=== PATIENT | male | born 1965 | race Caucasian/White ===

== ENCOUNTER 2020-06-06 15:16 | Emergency (ER) | payer OTHER ==
[2020-06-06] MEDS ORDERED: SODIUM CHLORIDE 0.9% 500 ML 500 ML IV STA (15:27)
--- NOTE | 2020-06-06 15:31 | ED ---
Seizure HPI - General Chief Complaint: Seizure Stated Complaint: Seizure Time Seen by Provider: 06/06/20 15:18 - History of Present Illness Initial Comments: patient is a 55-year-old male presenting to the emergency department via EMS after having a seizure today. Patient [place] the [place] when he felt an aura, placed that down on this beach and then proceeded to have a partial seizure according to witnesses. Patient states he does have a history of seizures in the past, they are infrequent, he does not take medicines for it. He states his last seizure was about 8 months ago. He denies any rece nt falls or trauma. He states they had just ate lunch. Patient denies any new medications. He states he only takes vitamins, no other meds. He denies any alcohol or drug use. He has seen a neurologist in the past. He states he has a mild headache and is slightly nauseous, no other complaints. He denies any blurry vision, dizziness, abdominal pain, chest pain or shortness of breath. He states he's been feeling fine all day prior to this event. He has no further complaints at this time. Upon arrival to the ER, his vitals are stable. - Related Data Home Medications Medication Instructions Recorded Confirmed buPROPion HCL [Wellbutrin XL] 300 PO 06/06/20 Allergies Allergy/AdvReac Type Severity Reaction Status Date / Time No Known Allergies Allergy Verified 06/06/20 15:56 Review of Systems ROS Statement: Those systems with pertinent positive or pertinent negative responses have been documented in the HPI. ROS Other: All systems not noted in ROS Statement are negative. General Exam - General Exam Comments Initial Comments: GENERAL: Patient is well-developed and well-nourished. Patient is nontoxic and in no acute distress. HEAD: Atraumatic, normocephalic. EYES: Pupils equal round and reactive to light, extraocular movements intact, sclera anicteric, conjunctiva are normal. Eyelids were unremarkable. ENT: TMs normal, nares patent, oropharynx clear without exudates. Moist mucous membranes. NECK: Normal range of motion, supple without lymphadenopathy or JVD. LUNGS: Unlabored respirations. Breath sounds clear to auscultation bilaterally and equal. No wheezes rales or rhonchi. HEART: Regular rate and rhythm without murmurs, rubs or gallops. ABDOMEN: Soft, nontender, normoactive bowel sounds. No guarding, no rebound. No masses appreciated. : Deferred MUSCULOSKELETAL: Normal extremities with adequate strength and normal range of motion, no pitting or edema. No clubbing or cyanosis. NEUROLOGICAL: Patient is alert and oriented x 3. Motor and sensory are also intact. Cranial nerves II through XII grossly intact. Symmetrical smile. Normal speech, normal gait. PSYCH: Normal mood, normal affect. SKIN: Warm, Dry, normal turgor, no rashes or lesions noted. Course Vital Signs 06/06/20 15:20 Temperature 97.9 F Pulse Rate 90 Respiratory 18 Rate Blood Pressure 132/87 O2 Sat by Pulse 96 Oximetry Medical Decision Making - Medical Decision Making patient is a 55-year-old male here after [place] a seizure on the beach. He does have a history of seizures, last was 8 months ago. He does see a neurologist locally, he has had an extensive workup in the past. He is not currently on medication. Patient's vital signs are stable. He did complain of a very mild headache. Computed tomography scan shows no abnormalities, lab work shows no abnormalities. He has been stable in the ER. Patient's is here with him now. He is stable for discharge. He'll follow up with his neurologist. Patient and patient's is in agreement with this plan of care. Return parameters were discussed with them and they both verbalized understanding. Case discussed with Dr. Levin. - Lab Data Result diagrams: 06/06/20 15:49 06/06/20 15:49 Lab Results 06/06/20 06/06/20 Range/Units 15:49 15:49 WBC 9.3 (3.8-10.6) k/uL RBC 4.80 (4.30-5.90) m/uL Hgb 14.2 (13.0-17.5) gm/dL Hct 42.9 (39.0-53.0) % MCV 89.5 (80.0-100.0) fL MCH 29.5 (25.0-35.0) pg MCHC 33.0 (31.0-37.0) g/dL RDW 13.8 (11.5-15.5) % Plt Count 312 (150-450) k/uL Neutrophils % 77 % Lymphocytes % 12 % Monocytes % 6 % Eosinophils % 4 % Basophils % 0 % Neutrophils # 7.1 (1.3-7.7) k/uL Lymphocytes # 1.1 (1.0-4.8) k/uL Monocytes # 0.6 (0-1.0) k/uL Eosinophils # 0.3 (0-0.7) k/uL Basophils # 0.0 (0-0.2) k/uL Sodium 138 (137-145) mmol/L Potassium 4.1 (3.5-5.1) mmol/L Chloride 108 H (98-107) mmol/L Carbon Dioxide 21 L (22-30) mmol/L Anion Gap 9 mmol/L BUN 15 (9-20) mg/dL Creatinine 0.85 (0.66-1.25) mg/dL Est GFR (CKD-EPI)AfAm >90 (>60 ml/min/1.73 sqM) Est GFR (CKD-EPI)NonAf >90 (>60 ml/min/1.73 sqM) Glucose 104 H (74-99) mg/dL Calcium 9.0 (8.4-10.2) mg/dL Total Bilirubin 0.3 (0.2-1.3) mg/dL AST 30 (17-59) U/L ALT 26 (4-49) U/L Alkaline Phosphatase 84 (38-126) U/L Total Protein 6.4 (6.3-8.2) g/dL Albumin 3.9 (3.5-5.0) g/dL - EKG Data EKG Comments: normal sinus rhythm, normal ECG, no signs of acute ischemia. Ventricular rate 84, panel 172, QT 386. Disposition Clinical Impression: Seizure, Hx of seizure disorder Disposition: HOME SELF-CARE Condition: Stable Instructions (If sedation given, give patient instructions): Recurrent Seizures in Adults (ED) Additional Instructions: Please return to the Emergency Department if symptoms worsen or any other concerns. Follow-up with neurology and PCP. Is patient prescribed a controlled substance at d/c from ED?: No Referrals: Fabian Ricks DO [Primary Care Provider] - 1-2 days
[2020-06-06 15:35] VITALS: RESP 18
[2020-06-06] MEDS ORDERED: KETOROLAC 30 MG/ML 1 ML VIAL IVP STA (15:52)
[2020-06-06 16:17] LABS: Basophils % (A) 0 %; Eosinophils # (A) 0.3 k/uL (0-0.7); Eosinophils % (A) 4 %; HCT 42.9 % (39.0-53.0); HGB 14.2 gm/dL (13.0-17.5); Lymphocytes # (A) 1.1 k/uL (1.0-4.8); Lymphocytes % (A) 12 %; MCH 29.5 pg (25.0-35.0); MCV 89.5 fL (80.0-100.0); Mean Platelet Volume 6.8; Monocytes # (A) 0.6 k/uL (0-1.0); Monocytes % (A) 6 %; Neutrophils # (A) 7.1 k/uL (1.3-7.7); Neutrophils % (A) 77 %; Platelet Count 312 k/uL (150-450); RDW 13.8 % (11.5-15.5); WBC 9.3 k/uL (3.8-10.6)
--- NOTE | 2020-06-06 16:23 | CT ---
EXAMINATION TYPE: CT brain wo con DATE OF EXAM: 06/06/2020 COMPARISON: None HISTORY: Seizure-like activity today. CT DLP: 1145.4 mGycm Automated exposure control for dose reduction was used. Ventricles have normal size. There is no mass effect nor midline shift. There is no sign of intracran ial hemorrhage. Calvarium is intact. There is no evidence of cerebral edema. Skull base is intact. Th ere is mucosal thickening in the posterior sphenoid sinus. IMPRESSION: Negative CT scan of the brain.
[2020-06-06 16:38] LABS: AST 30 U/L (17-59); African American GFR (CKD) >90 (>60 ml/min/1.73 sqM); Albumin 3.9 g/dL (3.5-5.0); Anion Gap 9 mmol/L; Blood Urea Nitrogen 15 mg/dL (9-20); Carbon Dioxide 21 mmol/L (22-30); Chloride 108 mmol/L (98-107); Glucose 104 mg/dL (74-99); Non-African American GFR(CKD) >90 (>60 ml/min/1.73 sqM); Potassium 4.1 mmol/L (3.5-5.1); Sodium 138 mmol/L (137-145); Total Bilirubin 0.3 mg/dL (0.2-1.3); Total Protein 6.4 g/dL (6.3-8.2)
[2020-06-06 16:39] LABS: ALT 26 U/L (4-49); Alkaline Phosphatase 84 U/L (38-126)
[2020-06-06 17:16] VITALS: BP 135/86; PULSE 89; TEMP 97.7
== END 2020-06-06 17:16 | disposition home or self-care (01) ==
LOC: EC 15:16
DX: R56.9 Unspecified convulsions (principal); R51 Headache; R11.0 Nausea; Z79.899 Other long term (current) drug therapy; Z86.69 Personal history of other diseases of the nervous system and sense organs
CPT/HCPCS: 36415; 93005; 80053; 85025; 70450; 99284; 96374; 96361; J1885